=== PATIENT | male | born 1960 | race Caucasian/White ===

== ENCOUNTER 2017-04-27 07:29 | Inpatient (IN) ==
--- NOTE | 2017-04-27 07:32 | Discharge Summary ---
<TawnybensonNo - Last Filed: 04/27/17 14:57> Date of Encounter: 04/27/17 - Discharge Diagnosis (1) Arthritis of knee, degenerative Priority: Primary Status: Chronic Qualifiers: Osteoarthritis type: primary Laterality: bilateral Qualified Code(s): M17.0 - Bilateral primary osteoarthritis of knee (2) Status post total bilateral knee replacement Priority: Primary Status: Acute (3) Morbid obesity with BMI of 40.0-44.9, adult Status: Chronic (4) Hypertension Status: Chronic Qualifiers: Hypertension type: unspecified secondary hypertension Qualified Code(s): I15.9 - Secondary hypertension, unspecified; I15 - Secondary hypertension (5) Hyperlipidemia Status: Chronic Qualifiers: Hyperlipidemia type: unspecified Qualified Code(s): E78.5 - Hyperlipidemia , unspecified - Discharge Medications Home Medications: Enoxaparin [Lovenox] 30 mg SQ Q12HR #14 syringe 04/27/17 [Rx] Lisinopril/Hydrochlorothiazide [Zestoretic 10-12.5 mg Tablet] 1 tab PO DAILY [History] OxyCODONE Immed Rel [Roxicodone 5 MG] 5 mg PO Q6HR PRN #28 tablet 04/27/17 [Rx] Allergies/Adverse Reactions: 3 Allergy/AdvReac Type Severity Reaction Status Date / Time No Known Allergies Allergy Verified 04/27/17 08:13 Primary care physician: Magui Grullon CNP - Patient Status Disposition: Transfer Inpatient Rehab Fac Condition: Good - Discharge Instructions Follow Up With: Magui Grullon CNP [Primary Care Provider] - - Hospital Course Hospital course: Mr. Yanes is a 56 year old male - Time Spent with Patient Total time spent providing and/or coordinating discharge services: <Cristobal Marx - Last Filed: 04/30/17 08:13> Date of Encounter: 04/30/17 Time of Encounter: 08:12 - Discharge Diagnosis (1) Morbid obesity with BMI of 40.0-44.9, adult Priority: Secondary Status: Chronic (2) Arthritis of knee, degenerative Priority: Primary Status: Chronic Qualifiers: Osteoarthritis type: primary Laterality: bilateral Qualified Code(s): M17.0 - Bilateral primary osteoarthritis of knee (3) Status post total bilateral knee replacement Priority: Primary Status: Acute (4) Hypertension Priority: Secondary Status: Chronic Qualifiers: Hypertension type: unspecified secondary hypertension Qualified Code(s): I15.9 - Secondary hypertension, unspecified; I15 - Secondary hypertension (5) Hyperlipidemia Priority: Secondary Status: Chronic Qualifiers: Hyperlipidemia type: unspecified Qualified Code(s): E78.5 - Hyperlipidemia , unspecified (6) Acute blood loss anemia Priority: Primary Status: Acute Primary care physician: Magui Grullon CNP - Patient Status Functional capacity at discharge: uses cane/walker Overall status at discharge: patient is progressing back to baseline - Hospital Course Hospital course: Mr. Yanes is a 56 year old male Status post bilateral total knee replacements. The patient had an uneventful postoperative course. They received antibiotics and physical therapy and were discharged in stable condition. There will follow -up in the office in 2 weeks. - Time Spent with Patient Total time spent providing and/or coordinating discharge services:
[2017-04-27] MEDS ORDERED: CeFAZolin Pre 3,000 MG/100 ML 3,000 MG/100 ML BAG IVPB ONE (08:08)
[2017-04-27] MEDS ORDERED: Lidocaine -MPF 1% 2 ML VIAL ID ONE (08:08)
--- NOTE | 2017-04-27 08:30 | History & Physical Report ---
Date of Encounter: 04/27/17 Time of Encounter: 08:30 24 Hour HP Update - Instructions Instructions: If the History and Physical is less than 30 days old and was completed prior to A.M. admission and or procedure and has NOT been updated on calendar day of procedure please complete this update prior to performing procedure. - Update Patient reports changes in Medical Condition: No Changes in examination, assessment, or condition: No Changes in Medication: No Preop tests/diagnostics Reviewed: Yes Surgery Remains Indicated: Yes Consent for Planned Operative Procedure(s) Verified: Yes - Pre-Operative Checklist Preoperative Checklist Indicated: No Prophylactic Antibiotic Ordered: Yes Is VTE Prophylaxis Indicated?: Yes
[2017-04-27] MEDS ORDERED: Gabapentin 300 MG CAPSULE PO ONE (08:34)
[2017-04-27] MEDS ORDERED: Famotidine 20 MG/2 ML VIAL IVP ONE (08:34)
--- NOTE | 2017-04-27 08:37 | Anesthesia Evaluation PreOp ---
Date of Encounter: 04/27/17 Time of Encounter: 08:35 - Past History Planned Operation: Bilateral TKA Cardiac History: HTN, Hyperlipidemia Pulmonary History: Denies Any Significant HX, Former smoker [employer] History: Denies Any Significant HX Other Medical History: Denies Any Significant HX, Other (Morbid Obesity) Anesthesia History: No Prior Anesthetic Complications Alcohol Use: none Drug use: none Medications and Allergies Enoxaparin [Lovenox] 30 mg SQ Q12HR #14 syringe 04/27/17 [Rx] Lisinopril/Hydrochlorothiazide [Zestoretic 10-12.5 mg Tablet] 1 tab PO DAILY [History] OxyCODONE Immed Rel [Roxicodone 5 MG] 5 mg PO Q6HR PRN #28 tablet 04/27/17 [Rx] 3 Allergy/AdvReac Type Severity Reaction Status Date / Time No Known Allergies Allergy Verified 04/27/17 08:13 - Meds/Allergy Pre-op Review Medications Reviewed: Yes Allergies Reviewed: Yes Beta Blockers on Current Med List: No Anesthesia Results - Labs Laboratory Tests 04/20/17 04/20/17 15:45 15:45 Hgb 15.4 Hct 45.7 Plt Count 291 Sodium 138 Potassium 4.0 BUN 13 Creatinine 1.19 - Imaging EKG: report reviewed (ST) Anesthesia Exam O2 Sat Height 1.78 m Height 1.78 m Weight 130.635 kg Weight 130.635 kg O2 Sat by Pulse Oximetry 96 Vital Signs Temp Pulse Resp BP Pulse Ox 97.9 F 84 18 144/83 96 04/27/17 08:29 04/27/17 08:29 04/27/17 08:29 04/27/17 08:29 04/27/17 08:29 Height: 5'10 Weight: 288 lbs NPO (# of Hours): MN Pain Scale: 0 - HEENT Pupil (Motor): Pupils equal, EOMI Mallampati: III Teeth: Edentulous Oral Opening: Less than or equal to 3 - [employer] LOC: Oriented [employer] Motor: Normal RUE, Normal LUE, Normal RLE, Normal LLE, Normal Face [employer] Sensory: Normal: RUE, LUE, RLE, LLE, Face - Cardiac Rhythm: Regular Murmur: None JVD: No Carotid Bruit: No - Pulmonary Breath Sounds: bilateral Clear Respiratory Effort: Symmetrical Anesthesia Assess/Plan ASA Score: 3 (HTN MO) Modified [place] Scale for Level of Consciousness: Cooperative, oriented, and tranquil Anesthetic Plan: General, Regional Monitoring Plan: Standard Monitors Recovery Plan: PACU (Discussed GA and Bilat Adductor Canal block, agrees to proceed)
[2017-04-27] MEDS: Ringers Solution, Lactated 1,000 ML IVC SCH ×2 (08:41→12:40)
[2017-04-27] MEDS ORDERED: Lidocaine -MPF 2% 2 ML VIAL ONE ×2 (08:51→10:44)
[2017-04-27] MEDS ORDERED: *HR* Propofol 200 MG/20 ML VIAL IVP ONE ×2 (08:51)
[2017-04-27] MEDS ORDERED: *HR* FentaNYL (PF) 100 MCG/2 ML VIAL ONE (08:51)
[2017-04-27] MEDS ORDERED: *HR* Midazolam HCl 2 MG/2 ML VIAL ONE ×2 (08:51→09:22)
[2017-04-27] MEDS ORDERED: *HR* Labetalol 20 MG/4 ML SYRINGE IVP PRN (08:54)
[2017-04-27] MEDS ORDERED: *HR* Meperidine 25 MG/ML SYRINGE IVP PRN (08:54)
[2017-04-27] MEDS ORDERED: Ondansetron 4 MG/2 ML VIAL IVP ONE (08:54)
[2017-04-27] MEDS ORDERED: Tetracaine/PF 20 MG/2 ML AMPUL ONE (09:23)
[2017-04-27] MEDS ORDERED: ROPIVACAINE HCL/PF 0.5% 30 ML VIAL ONE (09:23)
[2017-04-27] MEDS ORDERED: Bupivacaine/Clonidine Syringe 1 EACH SYRINGE ONE (09:24)
--- NOTE | 2017-04-27 10:09 | Anesthesia Procedures ---
Date of Encounter: 04/27/17 Time of Encounter: 08:30 Procedures: Anesthesia - Nerve Block Procedure Date: 04/27/17 Time: 09:30 Pre-op Diagnosis: Osteoarthritis Bilateral Knees Surgical Procedure: TKA Bilateral Blood Thinner: No Monitor Applied: EKG, BP, Pulse Oximetry Supplemental Oxygen via Nasal Cannula (L/min): 2 Sedation: Versed (mg): 4 Sedation: Fentanyl (mcg): 50 Indication: Post Op Analgesia Pre-op Neuro Deficits: No Block Type: Other (Adductor Canal Block and IPACK) Catheter placed: No Depth at skin (cm): 3 Sterile Technique: Yes Ultrasound used: Yes Anatomy identified: Yes Visual spread of Local: Yes Neuro Stimulation: No Blood on Needle Aspiration: No Smooth Injection of Local: Yes Pain with Injection of Local: No Prep: Chlorhexadine Needle: 21 x 100 mm Stimuplex Local: 0.25% Bupivicaine w/Clonidine 20 mcg/cc, Tetracaine (40), Ropivacaine ( 40cc 0.5%) Volume (cc): 40 Number of Attempts: 1 Complications: None/effective block Vitals: Vital Signs/O2 Sat/Glucose, Most Current Temp Pulse Resp BP Pulse Ox 04/27/17 09:40 78 18 105/68 98 04/27/17 09:25 76 129/68 98 04/27/17 08:29 97.9 F 84 18 144/83 96
[2017-04-27] MEDS ORDERED: Dexamethasone 4 MG/ML VIAL ONE (10:21)
[2017-04-27] MEDS ORDERED: Ondansetron 4 MG/2 ML VIAL ONE (10:44)
--- NOTE | 2017-04-27 11:17 | Orthopedic Operative Note ---
Date of procedure: 04/27/17 Pre-op diagnosis: Bilateral knee arthritis Post-op diagnosis: same Procedure: Procedure: Bilateral Total knee replacement Estimated blood loss: 500 cc Hardware: Arthrex Femur: 6 Tibia: 7 PS insert: 13 Patella: 40 Exam Under anesthesia: Bilateral loss of full extension 10 degrees varus alignment. Procedural Notes: Bilateral grade 4 arthritic changes all 3 compartments. Operative procedure: The patient was brought to the operating room and placed on the operating room table. After general anesthesia was administered the operative knees were examined. Findings were noted in the exam under anesthesia. Both operative extremity was prepped and draped in sterile surgical fashion. The patient received IV antibiotics prior to skin incision. Surgery began with the left knee followed by the right knee. The following is the dictation for both knees. Any variation for either knee will be called out at the appropriate step. A standard midline incision was made centered over the patella. The incision was made through the skin and subcutaneous tissue. A medial parapatellar tendon approach was performed. Care was taken to preserve tissue along the medial aspect of the patella. And to protect the patella tendon. The deep MCL was released off the medial tibia. The infra patella fat pad was excised. Knee was brought into flexion. Patient noted to have grade 4 arthritic changes in both knees in all 3 compartments. The entry hole was made for the intramedullary femoral guide. The guide was seated in 6 degrees of valgus. Anterior cut was made followed by the distal cut. The ACL the PCL the medial and the lateral menisci were excised. The tibia was subluxed forward. The entry hole was made for the intramedullary tibial guide. Guide was seated to resect 2 mm off the more abnormal side. The knee was brought into flexion the distal femur was sized 6. The femoral guide was seated , the anterior cut was made followed by the posterior condylar cut, followed by the chamfer cuts. The finishing guide was seated the box cut was made and the lug holes were drilled. The tibia was sized 7, the tibial tray was seated and prepared with the large drill followed by the fin cutter. Trial reduction revealed full extension no varus valgus instability with the appropriate 13 PS Corinne. The patella was everted and cut was made at the level of the insertion of the quadriceps and patella tendon. The patella was sized the guide was seated and the lug holes are drilled. Trial reduction revealed excellent patella tracking. All trial components were removed all bony surfaces were irrigated. The tibia was cemented first followed by the femur. 13 PS Corinne was seated and the knee was brought into full extension. The patella was cemented and held in place with the patellar holding clamp. After the cement had hardened, the knee sat for 2 minutes with a Betadine saline solution. The knee was then irrigated out with 2 L of pulse irrigation. The knee was closed by the PA. The extensor mechanism was closed with #2 FiberWire suture and #2 PDS suture. The subcutaneous tissue was then irrigated and closed deep with #1 PDS suture superficially with 0 PDS suture and skin was closed with shalonda. The patient was then placed in a sterile dressing and a postoperative brace extubated and transferred to recovery room in stable condition. Anesthesia: HENRRY Surgeon: Cristobal Marx Non Destructive Testing Scientist: Vesna Gale Condition: stable Disposition: PACU
[2017-04-27] MEDS: *HR* HYDROmorphone 2 MG/ML SYRINGE ONE ×3 (11:59→12:14)
[2017-04-27] MEDS ORDERED: *HR* HYDROmorphone 2 MG/ML SYRINGE ONE (12:13)
[2017-04-27] MEDS: *HR* HYDROmorphone (PF) 1 MG/ML SYRINGE IVP PRN ×5 (12:19→15:25)
[2017-04-27 12:31] LABS: Hematocrit 40.2 % (37.5-50.1)
[2017-04-27 12:35] LABS: Hemoglobin 13.2 g/dL (12.9-16.9)
--- NOTE | 2017-04-27 13:07 | Anesthesia Evaluation Post Op ---
Date of Encounter: 04/27/17 Time of Encounter: 12:50 - Vital Signs Vital Signs: Vital Signs/O2 Sat/Glucose, Most Current Temp Pulse Resp BP Pulse Ox 04/27/17 12:54 97.3 F L 86 14 122/77 98 04/27/17 12:44 85 16 135/94 95 04/27/17 12:34 86 19 147/74 94 04/27/17 12:24 99.0 F 80 14 126/84 96 04/27/17 12:14 69 18 116/61 97 04/27/17 12:04 66 17 103/69 98 04/27/17 11:54 97.5 F L 80 14 98/64 97 04/27/17 09:40 78 18 105/68 98 04/27/17 09:25 76 129/68 98 - Lungs Lungs: Clear Ascult./Percussion - Airway Airway: Non-obstructed - Cardiovascular Regular Rate - Mental Status Mental Status: Alert & Oriented, Answers Appropriately - Pain Pain Scale: 0 - Nausea Vomiting Nausea Vomiting: Not Present - Hydration Hydration: Ice chips - Discharge PostOp Status: Transfer Patient to floor
[2017-04-27] MEDS ORDERED: Sennosides 8.6 MG TABLET PO PRN (13:30)
[2017-04-27] MEDS ORDERED: Naloxone 0.4 MG/ML INJ IVP PRN (13:30)
[2017-04-27] MEDS ORDERED: Ringers Solution, Lactated 1,000 ML IVC SCH (13:30)
[2017-04-27] MEDS ORDERED: *HR* OxyCODONE Immed Rel 5 MG TABLET PO PRN (13:30)
[2017-04-27] MEDS ORDERED: MOM Conc 10 ML UD.LIQ PO PRN (13:30)
[2017-04-27] MEDS ORDERED: Ondansetron 4 MG/2 ML VIAL IVP PRN (13:30)
[2017-04-27] MEDS: *HR* OxyCODONE Immed Rel 5 MG TABLET PO PRN ×3 (13:45→22:55)
--- NOTE | 2017-04-27 14:55 | Physician Discharge Referral ---
Home Health/Hosp Referral Info Transfer to: Home Health Attending Provider: Provider in Charge Post Discharge: PCP - Diagnosis (1) Arthritis of knee, degenerative Priority: Primary Status: Chronic (2) Status post total bilateral knee replacement Priority: Secondary Status: Acute (3) Morbid obesity with BMI of 40.0-44.9, adult Priority: Secondary Status: Chronic (4) Hypertension Priority: Secondary Status: Chronic (5) Hyperlipidemia Priority: Secondary Status: Chronic - Respiratory Orders None Smoking Cessation: Smoking cessation has been advised. For more information, call the [place] Tobacco Quit Line at 8-128-NIGO-NOW. - Diet/Nutrition Diet/Nutrition Orders: Regular - Activity Activity Orders: Up ad cheyanne, Ambulate, Chair, Walker - Services Needed Following services are medically necessary services: Nursing, Home Health Aide, Physical Therapy, Occupational Therapy Home Care Orders: Opsite dressing, leave intact until first post-operative visit. If dressing becomes >50% saturated, contact office, remove dressing and place appropriate dressing in its place. Do not allow for dressing to get wet. [place] in place. PT: Precautions x 6 weeks Apply cold therapy wrap 3-6x/day for 20 minutes at a time. Encourage ambulation throughout the day and incentive spirometer 10x/hour. Elevate affected extremity above heart as tolerated. Brace: Immobilizer to be worn at night x 2 weeks. - Transfer Medications Home Medications: Enoxaparin [Lovenox] 30 mg SQ Q12HR #14 syringe 04/27/17 [Rx] Lisinopril/Hydrochlorothiazide [Zestoretic 10-12.5 mg Tablet] 1 tab PO DAILY [History] OxyCODONE Immed Rel [Roxicodone 5 MG] 5 mg PO Q6HR PRN #28 tablet 04/27/17 [Rx] Allergies/Adverse Reactions: 3 Allergy/AdvReac Type Severity Reaction Status Date / Time No Known Allergies Allergy Verified 04/27/17 08:13 Certification: Further, I certify that my clinical findings support that this patient is homebound (i.e. absences from home require considerable and taxing effort and are for medical reasons or anabaptist services or infrequently or short duration when for other reasons) because: Homebound Reason: Post-surgery restriction and or conditions limit ability to leave home Attestation: My signature below is to certify that this patient is under my care and that I, or nurse practitioner, or a physician's assistant chief engineer working with me, has a face-to -face encounter with this patient.
[2017-04-27] MEDS: ceFAZolin 3,000 MG in D5% in Water 100 ML IVPB SCH ×2 (15:26→23:40)
[2017-04-27] MEDS: *HR* Enoxaparin 30 MG/0.3 ML SYRINGE SQ SCH (17:34)
[2017-04-27] MEDS: tiZANidine 4 MG TABLET PO PRN (17:34)
[2017-04-27] MEDS ORDERED: *HR* Enoxaparin 30 MG/0.3 ML SYRINGE SQ SCH (18:00)
[2017-04-28] MEDS: Temazepam 15 MG CAPSULE PO PRN (03:49)
[2017-04-28] MEDS: *HR* OxyCODONE Immed Rel 5 MG TABLET PO PRN ×5 (03:49→21:38)
[2017-04-28] MEDS: *HR* Enoxaparin 30 MG/0.3 ML SYRINGE SQ SCH ×2 (06:44→17:47)
--- NOTE | 2017-04-28 06:45 | Orthopedics Progress Note ---
Date of Encounter: 04/28/17 Time of Encounter: 06:44 - Assessment and Plan (1) Morbid obesity with BMI of 40.0-44.9, adult Current Visit: Yes Status: Chronic (2) Arthritis of knee, degenerative Current Visit: Yes Status: Chronic Qualifiers: Osteoarthritis type: primary Laterality: bilateral Qualified Code(s): M17.0 - Bilateral primary osteoarthritis of knee (3) Status post total bilateral knee replacement Current Visit: Yes Status: Acute (4) Hypertension Current Visit: Yes Status: Chronic Qualifiers: Hypertension type: unspecified secondary hypertension Qualified Code(s): I15.9 - Secondary hypertension, unspecified; I15 - Secondary hypertension (5) Hyperlipidemia Current Visit: Yes Status: Chronic Qualifiers: Hyperlipidemia type: unspecified Qualified Code(s): E78.5 - Hyperlipidemia , unspecified Subjective Interval history: Patient was seen this morning doing well without complaints. Afebrile vital signs stable. Operative extremity: Neurovascularly intact Dressing clean dry and intact Calves nontender Assessment and plan: Continue with postoperative care Hematocrit 40 Objective Vital signs: Vital Signs Temp Pulse Resp BP Pulse Ox 04/28/17 04:19 98.8 F 92 18 110/69 93 04/28/17 00:48 98.7 F 90 18 108/68 95 04/27/17 20:27 97.5 F L 96 18 110/52 95 04/27/17 16:51 97.7 F 109 18 124/85 93 04/27/17 15:30 98.5 F 103 16 107/67 94 04/27/17 14:09 97.6 F 96 12 117/80 98 04/27/17 13:47 97.7 F 97 12 124/96 98 04/27/17 13:31 99 04/27/17 13:15 97.9 F 89 14 114/76 99 04/27/17 12:54 97.3 F L 86 14 122/77 98 04/27/17 12:44 85 16 135/94 95 04/27/17 12:34 86 19 147/74 94 04/27/17 12:24 99.0 F 80 14 126/84 96 04/27/17 12:14 69 18 116/61 97 04/27/17 12:04 66 17 103/69 98 04/27/17 11:54 97.5 F L 80 14 98/64 97 04/27/17 09:40 78 18 105/68 98 04/27/17 09:25 76 129/68 98 04/27/17 08:29 97.9 F 84 18 144/83 96 Intake and Output 04/27/17 04/27/17 04/28/17 15:59 23:59 07:59 Intake Total 1100 / 1100 100 / 100 Output Total 500 / 500 375 / 375 Balance 600 / 600 -275 / -275 Intake: IV Fluids 1100 / 1100 100 / 100 Lactated Ringers 1,000 ML @ 75 1000 / 1000 mls/hr IVC .[id number] MINI Rx#: [id number] Ancef Premix 3,000 MG/100 ML 3, 100 / 100 000 mg In 100 ml @ 200 mls/hr IVPB PREOP ONE Rx#:[id number] Ancef 3,000 MG In Dextrose 5% 100 / 100 100 ML @ 200 mls/hr IVPB Q8HR MINI Rx#:[id number] Output: Urine 375 / 375 Estimated Blood Loss 500 / 500 Other: # Voids 1 Weight 130.635 kg - Labs CBC & BMP: 04/27/17 12:09 - VTE Documentation of Mechanical Device: Venous foot pump, device Consult Discharge Plan - Plan Referrals: Magui Grullon, CORPORATE SALES MANAGER [Primary Care Provider] -
[2017-04-28 07:29] LABS: Hematocrit 32.7 % (37.5-50.1)
[2017-04-28 07:41] LABS: BUN/Creatinine Ratio 23 (6-26); Blood Urea Nitrogen 31 mg/dL (8-26); Calcium 8.1 mg/dL (8.6-10.8); Carbon Dioxide 24 mEq/L (19-29); Chloride 101 mEq/L (98-109); Glucose 110 mg/dL (70-99); Osmolality,Calculated 285 (280-300); Potassium 4.1 mEq/L (3.5-4.5); Sodium 134 mEq/L (136-145); eGFR For African Americans > 60 (> 60); eGFR For Non-African Americans 54 (> 60)
[2017-04-28] MEDS: *HR* HYDROmorphone (PF) 1 MG/ML SYRINGE IVP PRN ×2 (08:58→14:46)
[2017-04-28 09:02] LABS: Hemoglobin 10.8 g/dL (12.9-16.9)
--- NOTE | 2017-04-28 12:21 | Event Note ---
Date of Encounter: 04/28/17 Time of Encounter: 12:20 PCR - Bilateral TKR 04/28/17 POD#.1 Comorbidities: HTN, Obesity Labs: 04/28 - Stable Patient seen at bedside. Pain control: adequate - Added Tylenol PO and Toradol 15mg Q 6 All questions and concerns addressed. Educated on use of incentive spirometer, ambulation, and hydration. Patient educated on post-operative restrictions and care. Addressed: see above D/C plan:. PT recommending ECF, patient wanting HH - ZAY in, Lovenox RX for DVT prophylaxis printed - Home tomorrow AM 04/29
[2017-04-28] MEDS ORDERED: Acetaminophen 325 MG TABLET PO PRN (13:53)
[2017-04-28] MEDS: Ketorolac 30 MG/ML VIAL IVP PRN (16:54)
--- NOTE | 2017-04-28 17:06 | Physician Discharge Referral ---
ExtendedCare Referral Info Transfer To: F Provider in Charge: Provider in Charge after Transfer: PCP Institutional Level of Care: Skilled - Diagnosis (1) Arthritis of knee, degenerative Priority: Primary Status: Chronic (2) Status post total bilateral knee replacement Priority: Primary Status: Acute (3) Morbid obesity with BMI of 40.0-44.9, adult Priority: Secondary Status: Chronic (4) Hypertension Priority: Secondary Status: Chronic (5) Hyperlipidemia Priority: Secondary Status: Chronic Expected Duration of Placement: < 30 days Prognosis: Good Aware of Diagnosis: Patient Aware of Prognosis: Patient - Transfer Medications Home Medications: Enoxaparin [Lovenox] 30 mg SQ Q12HR #14 syringe 04/27/17 [Rx] Lisinopril/Hydrochlorothiazide [Zestoretic 10-12.5 mg Tablet] 1 tab PO DAILY [History] OxyCODONE Immed Rel [Roxicodone 5 MG] 5 mg PO Q6HR PRN #28 tablet 04/27/17 [Rx] Allergies/Adverse Reactions: 3 Allergy/AdvReac Type Severity Reaction Status Date / Time No Known Allergies Allergy Verified 04/27/17 08:13 - Respiratory Orders None Smoking Cessation: Smoking cessation has been advised. For more information, call the [place] [facility] Tobacco Quit Line at 4-468-ODPJNOW. - Ancillary Orders May use pressure relief devices daily prn, May go on LILIAN w/family/respon alliance party w /meds at nurse discretion PRN, May consult with Dentist, Rug Cleaner, Olive Brine Tester PRN - Mobility Orders Chair, Ambulate - Rehabiliation Orders Rehab Potential: Good Rehab Orders: ROM Exercises, Evaluation for Physical Therapy, Evaluation for Occupational Therapy - Treatments List/Other: Opsite dressing, leave intact until first post-operative visit. If dressing becomes >50% saturated, contact office, remove dressing and place appropriate dressing in its place. Do not allow for dressing to get wet. [place] in place, plan to remove at post-operative day #14-16. Total Joint Precautions x 6 weeks Apply cold therapy wrap 3-6x/day for 20 minutes at a time. Encourage ambulation throughout the day Use Incentive spirometer 10x/hour. Elevate affected extremity above heart as tolerated. Brace: Wear knee immobilizer at night x 2 weeks. CERTIFICATION: I certify that the transfer of the above named patient to an Extended Care Facility is necessary for the continuing treatment of the diagnosis listed. The above information is true and accurate reflection of patient's current condition. Confidential - Redisclosure prohibited without a patient's written consent.
[2017-04-28] MEDS: tiZANidine 4 MG TABLET PO PRN (17:47)
[2017-04-29 06:26] LABS: Hematocrit 31.3 % (37.5-50.1); Hemoglobin 10.6 g/dL (12.9-16.9)
[2017-04-29 06:39] LABS: BUN/Creatinine Ratio 22 (6-26); Blood Urea Nitrogen 25 mg/dL (8-26); Calcium 8.3 mg/dL (8.6-10.8); Carbon Dioxide 28 mEq/L (19-29); Chloride 97 mEq/L (98-109); Glucose 148 mg/dL (70-99); Osmolality,Calculated 277 (280-300); Potassium 3.9 mEq/L (3.5-4.5); Sodium 130 mEq/L (136-145); eGFR For African Americans > 60 (> 60); eGFR For Non-African Americans > 60 (> 60)
[2017-04-29] MEDS: *HR* Enoxaparin 30 MG/0.3 ML SYRINGE SQ SCH ×2 (06:48→16:58)
[2017-04-29] MEDS: *HR* OxyCODONE Immed Rel 5 MG TABLET PO PRN ×3 (06:50→20:05)
[2017-04-29] MEDS: Ketorolac 30 MG/ML VIAL IVP PRN ×2 (09:44→16:57)
--- NOTE | 2017-04-29 13:25 | Orthopedics Progress Note ---
Date of Encounter: 04/29/17 Time of Encounter: 13:25 - Assessment and Plan (1) Morbid obesity with BMI of 40.0-44.9, adult Current Visit: Yes Status: Chronic (2) Arthritis of knee, degenerative Current Visit: Yes Status: Chronic Qualifiers: Osteoarthritis type: primary Laterality: bilateral Qualified Code(s): M17.0 - Bilateral primary osteoarthritis of knee (3) Status post total bilateral knee replacement Current Visit: Yes Status: Acute (4) Hypertension Current Visit: Yes Status: Chronic Qualifiers: Hypertension type: unspecified secondary hypertension Qualified Code(s): I15.9 - Secondary hypertension, unspecified; I15 - Secondary hypertension (5) Hyperlipidemia Current Visit: Yes Status: Chronic Qualifiers: Hyperlipidemia type: unspecified Qualified Code(s): E78.5 - Hyperlipidemia , unspecified Subjective Interval history: Patient was seen this morning doing well without complaints. Afebrile vital signs stable. Operative extremity: Neurovascularly intact Dressing clean dry and intact Calves nontender Assessment and plan: Continue with postoperative care Hematocrit 31 Objective Vital signs: Vital Signs Temp Pulse Resp BP Pulse Ox 04/29/17 11:09 99 04/29/17 07:08 98.8 F 103 16 144/77 99 04/28/17 23:36 99.5 F 117 18 119/63 97 04/28/17 19:54 98.7 F 90 17 95/57 91 Intake and Output 04/28/17 04/29/17 04/29/17 23:59 07:59 15:59 Intake Total 500 / 500 500 / 500 Output Total 400 / 400 400 / 400 Balance 100 / 100 100 / 100 Intake: Oral 500 / 500 500 / 500 Output: Urine 400 / 400 400 / 400 Other: # Bowel Movements 0 - Labs CBC & BMP: 04/29/17 06:05 04/29/17 06:05 Labs: Abnormal lab results Hgb 10.6 g/dL (12.9-16.9) L 04/29/17 06:05 Hct 31.3 % (37.5-50.1) L 04/29/17 06:05 Sodium 130 mEq/L (136-145) L 04/29/17 06:05 Chloride 97 mEq/L (98-109) L 04/29/17 06:05 Glucose 148 mg/dL (70-99) H 04/29/17 06:05 Calculated Osmolality 277 (280-300) L 04/29/17 06:05 Calcium 8.3 mg/dL (8.6-10.8) L 04/29/17 06:05 - VTE Documentation of Mechanical Device: Intermittent pneumatic compression device Consult Discharge Plan - Plan Referrals: Magui Grullon, MITER OPERATOR [Primary Care Provider] -
[2017-04-30] MEDS: Temazepam 15 MG CAPSULE PO PRN (00:17)
[2017-04-30] MEDS: *HR* HYDROmorphone (PF) 1 MG/ML SYRINGE IVP PRN ×4 (03:51→19:57)
[2017-04-30] MEDS: *HR* OxyCODONE Immed Rel 5 MG TABLET PO PRN ×3 (05:11→14:35)
[2017-04-30] MEDS: *HR* Enoxaparin 30 MG/0.3 ML SYRINGE SQ SCH ×2 (06:50→18:06)
--- NOTE | 2017-04-30 08:13 | Orthopedics Progress Note ---
Date of Encounter: 04/30/17 Time of Encounter: 08:13 - Assessment and Plan (1) Morbid obesity with BMI of 40.0-44.9, adult Current Visit: Yes Status: Chronic (2) Arthritis of knee, degenerative Current Visit: Yes Status: Chronic Qualifiers: Osteoarthritis type: primary Laterality: bilateral Qualified Code(s): M17.0 - Bilateral primary osteoarthritis of knee (3) Status post total bilateral knee replacement Current Visit: Yes Status: Acute (4) Hypertension Current Visit: Yes Status: Chronic Qualifiers: Hypertension type: unspecified secondary hypertension Qualified Code(s): I15.9 - Secondary hypertension, unspecified; I15 - Secondary hypertension (5) Hyperlipidemia Current Visit: Yes Status: Chronic Qualifiers: Hyperlipidemia type: unspecified Qualified Code(s): E78.5 - Hyperlipidemia , unspecified (6) Acute blood loss anemia Current Visit: Yes Status: Acute Subjective Interval history: Patient was seen this morning doing well without complaints. Afebrile vital signs stable. Operative extremity: Neurovascularly intact Dressing clean dry and intact Calves nontender Assessment and plan: Continue with postoperative care Discharge today Objective Vital signs: Vital Signs Temp Pulse Resp BP Pulse Ox 04/30/17 06:54 98.6 F 102 16 119/69 95 04/30/17 00:12 99.6 F 101 16 117/72 99 04/29/17 20:42 99.1 F 102 19 150/69 100 04/29/17 17:03 99.2 F 115 18 140/80 99 04/29/17 11:09 99 Intake and Output 04/29/17 04/30/17 04/30/17 23:59 07:59 15:59 Intake Total 600 / 600 400 / 400 Output Total 400 / 400 600 / 600 Balance 200 / 200 -200 / -200 Intake: Oral 600 / 600 400 / 400 Output: Urine 400 / 400 600 / 600 - Labs CBC & BMP: 04/29/17 06:05 04/29/17 06:05 Labs: Abnormal lab results Hgb 10.6 g/dL (12.9-16.9) L 04/29/17 06:05 Hct 31.3 % (37.5-50.1) L 04/29/17 06:05 Sodium 130 mEq/L (136-145) L 04/29/17 06:05 Chloride 97 mEq/L (98-109) L 04/29/17 06:05 Glucose 148 mg/dL (70-99) H 04/29/17 06:05 Calculated Osmolality 277 (280-300) L 04/29/17 06:05 Calcium 8.3 mg/dL (8.6-10.8) L 04/29/17 06:05 - VTE Documentation of Mechanical Device: Venous foot pump, device Consult Discharge Plan - Plan Referrals: Magui Grullon, [employer] [Primary Care Provider] -
--- NOTE | 2017-04-30 12:36 | Event Note ---
Date of Encounter: 04/30/17 Time of Encounter: 12:36 PCR - Bilateral TKR 04/28/17 POD#.3 Comorbidities: HTN, Obesity Labs: 04/28 - Stable 04/29 - stable Patient seen at bedside. Pain control: adequate - Added Tylenol PO and Toradol 15mg Q 6 All questions and concerns addressed. Educated on use of incentive spirometer, ambulation, and hydration. Patient educated on post-operative restrictions and care. Addressed: see above D/C plan:. P, Lovenox RX for DVT prophylaxis printed - Patient wanted to go to [facility] - however unable to pay deductible. He will now go home with in AM 05/01
[2017-05-01] MEDS: Temazepam 15 MG CAPSULE PO PRN (01:01)
[2017-05-01] MEDS: *HR* OxyCODONE Immed Rel 5 MG TABLET PO PRN ×2 (01:45→09:42)
--- NOTE | 2017-05-01 06:24 | Orthopedics Progress Note ---
Date of Encounter: 05/01/17 Time of Encounter: 06:23 - Assessment and Plan (1) Morbid obesity with BMI of 40.0-44.9, adult Current Visit: Yes Status: Chronic (2) Arthritis of knee, degenerative Current Visit: Yes Status: Chronic Qualifiers: Osteoarthritis type: primary Laterality: bilateral Qualified Code(s): M17.0 - Bilateral primary osteoarthritis of knee (3) Status post total bilateral knee replacement Current Visit: Yes Status: Acute (4) Hypertension Current Visit: Yes Status: Chronic Qualifiers: Hypertension type: unspecified secondary hypertension Qualified Code(s): I15.9 - Secondary hypertension, unspecified; I15 - Secondary hypertension (5) Hyperlipidemia Current Visit: Yes Status: Chronic Qualifiers: Hyperlipidemia type: unspecified Qualified Code(s): E78.5 - Hyperlipidemia , unspecified (6) Acute blood loss anemia Current Visit: Yes Status: Acute Subjective Interval history: Patient was seen this morning doing well without complaints. Afebrile vital signs stable. Operative extremity: Neurovascularly intact Dressing clean dry and intact Calves nontender Assessment and plan: Continue with postoperative care Discharge today held yesterday secondary to placement Objective Vital signs: Vital Signs Temp Pulse Resp BP Pulse Ox 04/30/17 23:10 99.0 F 96 16 123/72 99 04/30/17 20:53 98.8 F 96 16 123/75 98 04/30/17 09:08 95 04/30/17 06:54 98.6 F 102 16 119/69 95 Intake and Output 04/30/17 04/30/17 05/01/17 15:59 23:59 07:59 Intake Total 232 / 232 Output Total 675 / 675 Balance 232 / 232 -675 / -675 Intake: Oral 232 / 232 Output: Urine 675 / 675 Other: Meal Breakfast Percent of Meal Consumed 100% - Labs CBC & BMP: 04/29/17 06:05 04/29/17 06:05 Labs: Abnormal lab results Hgb 10.6 g/dL (12.9-16.9) L 04/29/17 06:05 Hct 31.3 % (37.5-50.1) L 04/29/17 06:05 Sodium 130 mEq/L (136-145) L 04/29/17 06:05 Chloride 97 mEq/L (98-109) L 04/29/17 06:05 Glucose 148 mg/dL (70-99) H 04/29/17 06:05 Calculated Osmolality 277 (280-300) L 04/29/17 06:05 Calcium 8.3 mg/dL (8.6-10.8) L 04/29/17 06:05 - VTE Documentation of Mechanical Device: Venous foot pump, device Consult Discharge Plan - Plan Referrals: Magui Grullon, [employer] [Primary Care Provider] -
[2017-05-01] MEDS: *HR* Enoxaparin 30 MG/0.3 ML SYRINGE SQ SCH (06:50)
[2017-05-01] MEDS: Ketorolac 30 MG/ML VIAL IVP PRN (08:21)
[2017-05-01 10:48] VITALS: BP 114/62
== END 2017-05-01 12:30 | DRG 462 ==
LOC: SAMDAY 07:29 → 3NENU 13:13
PROVIDERS: ADMIT Orthopaedic Surgery; ATTEND Orthopaedic Surgery